=== PATIENT | female | born 1945 | race Caucasian/White ===

== ENCOUNTER 2017-08-29 07:14 | Outpatient (CLI) | payer OTHER | END 2017-08-29 07:18 | disposition home or self-care (01) | LOC: SONOGRAMA 07:14 | DX: E04.1 Nontoxic single thyroid nodule (principal) ==

== ENCOUNTER 2023-09-13 08:01 | Outpatient (CLI) | payer OTHER ==
[~2023-09-13 08:01] MED LIST: AVAPRO75 MG PO; HUMULIN 70100 UNIT/2; HYDRODIURIL12.5 MG PO; INTESTINEX680 M1 PO; LEVOTHYROXINE25 MCG PO; PLAVIX75 MG PO; SINGULAIR10 MG PO; TRAM1TAB98 PO; ZOCOR40 MG PO
== END 2023-09-13 08:03 | disposition home or self-care (01) ==
LOC: NUCLEAR 08:01
DX: I20.9 Angina pectoris, unspecified (principal); E11.9 Type 2 diabetes mellitus without complications; I10 Essential (primary) hypertension; R06.00 Dyspnea, unspecified